=== PATIENT | female | born 1960 | race Caucasian/White ===

== ENCOUNTER 2023-10-06 19:11 | Emergency (ER) | payer SELFPAY ==
[~2023-10-06] VITALS: Ht 154.9 cm; Wt 70.3 kg
[2023-10-06 19:17] VITALS: O2SAT 97
[2023-10-06] MEDS: ACETAMINOPHEN 500MG TABLET PO ONE (20:11)
[2023-10-06] MEDS ORDERED: NAPR-1176 MT (21:42)
[2023-10-06] MEDS ORDERED: LIDO700A15 TP (21:42)
[2023-10-06 22:30] VITALS: BP 138/77; PULSE 72; RESP 18; TEMP 98.4
== END 2023-10-06 22:33 | disposition home or self-care (01) ==
LOC: ER 19:32
DX: M25.511 Pain in right shoulder (principal)
CPT/HCPCS: 73030; 73090; 73100; 99284